=== PATIENT | male | born 1990 | race African-American/Black ===

== ENCOUNTER 2021-06-05 18:05 | Emergency (ER) | payer OTHER ==
[~2021-06-05] VITALS: Ht 190.5 cm; Wt 95.3 kg
[2021-06-05] MEDS ORDERED: LORAZEPAM 0.5 MG TABLET PO ONE (19:00)
[2021-06-05] MEDS ORDERED: LORAZEPAM 1 MG TABLET ONE (19:13)
--- NOTE | 2021-06-05 19:14 | NUR ---
Recieved report from YESENIA Navas. Pt. here for reported having a panic attack with HTN at his rehab faclity today. Pt. currently feeling less anxious and requesting to go back to the rehab facility. aware.
--- NOTE | 2021-06-05 19:31 | NUR ---
Patient discharged to go home to rehab facility he is currently staying at in stable condition. Written and verbal after care instructions given. Patient verbalizes understanding of instructions. Stressed follow up or return to ER for worsening s/s. Pt walks with steady gait. No signs of distress. All belongings taken.
[2021-06-05 19:32] VITALS: BP 144/97
== END 2021-06-05 19:33 | disposition home or self-care (01) ==
LOC: ER 18:05
DX: F41.0 Panic disorder [episodic paroxysmal anxiety] (principal); I10 Essential (primary) hypertension; F15.10 Other stimulant abuse, uncomplicated
CPT/HCPCS: 93005; A4663